=== PATIENT | female | born 1935 | race Native Hawaiian/Other Pacific Islander ===

== ENCOUNTER 2020-02-07 13:17 | Outpatient (CLI) | payer OTHER | END 2020-02-07 23:46 | disposition home or self-care (01) | LOC: RESP 13:17 | DX: I25.10 Atherosclerotic heart disease of native coronary artery without angina pectoris (principal) ==

== ENCOUNTER 2020-02-08 08:30 | Outpatient (CLI) | payer OTHER ==
[~2020-02-08] VITALS: Ht 160 cm; Wt 94.3 kg
== END 2020-02-09 00:21 | disposition home or self-care (01) ==
LOC: NM 08:30
DX: I25.10 Atherosclerotic heart disease of native coronary artery without angina pectoris (principal)
CPT/HCPCS: A9500; J2785